=== PATIENT | male | born 1995 | race Caucasian/White ===

== ENCOUNTER 2017-02-16 16:32 | Emergency (ER) | payer OTHER | END 2017-02-16 19:49 | disposition home or self-care (01) | LOC: FER 16:32 | DX: S93.402A Sprain of unspecified ligament of left ankle, initial encounter (principal); W31.9XXA Contact with unspecified machinery, initial encounter; Y92.69 Other specified industrial and construction area as the place of occurrence of the external cause; Y99.0 Civilian activity done for income or pay | CPT/HCPCS: 73610; 73630; 99283 ==